=== PATIENT | male | born 1970 | race Caucasian/White ===

== ENCOUNTER → 2024-12-18 | Day surgery (SDC) | payer OTHER ==
[~2024-12-18] MED LIST: ACETAMINOPHEN 1000 MG/100 ML 0 ML IV ONE; ACETAMINOPHEN 1000 MG/100 ML 100 ML IV ONE; AMLODIPINE BESYL5 MG PO; BUPIVACAINE LIPOSOME/PF 266 MG/20 ML IJ ONE; CIALIS5 MG PO; DEXAMETHASONE SOD PHOS INJ 4 MG/ML SDV ONE; FENTANYL CITRATE/PF 100MCG/2 ML INJ ONE; LIDOCAINE HCL 2% LOCAL INJ 5 ML SDV VIAL INJ ONE; MIDAZOLAM HCL 2 MG/2 ML VIAL ONE; ONDANSETRON HCL INJ 2MG/ML 2ML 2 MG/ML VIAL ONE; PROPOFOL IV EMULSION 10 MG/ML 20 ML VIAL ONE; SUCCINYLCHOLINE CHLORIDE 20 MG/ML 10ML VIAL ONE
[2024-12-18] MEDS: LACTATED RINGER'S 1,000 ML ONE (11:16)
[2024-12-18] MEDS: HYDROCODONE/APAP 7.5MG-325MG 1 EA TAB ONE (16:00)
[2024-12-18 16:25] VITALS: BP 127/85; PULSE 62; RESP 17; O2SAT 96
== END | disposition home or self-care (01) ==
LOC: OR 10:39
PROVIDERS: ATTEND Orthopaedic Surgery Sports Medicine
DX: D17.9 Benign lipomatous neoplasm, unspecified (principal); M19.011 Primary osteoarthritis, right shoulder; M25.711 Osteophyte, right shoulder; S43.431A Superior glenoid labrum lesion of right shoulder, initial encounter; M75.121 Complete rotator cuff tear or rupture of right shoulder, not specified as traumatic; M75.21 Bicipital tendinitis, right shoulder; S46.811A Strain of other muscles, fascia and tendons at shoulder and upper arm level, right arm, initial encounter; M67.411 Ganglion, right shoulder; M65.821 Other synovitis and tenosynovitis, right upper arm; D17.20 Benign lipomatous neoplasm of skin and subcutaneous tissue of unspecified limb; I10 Essential (primary) hypertension; K21.9 Gastro-esophageal reflux disease without esophagitis; Z01.810 Encounter for preprocedural cardiovascular examination; Z79.899 Other long term (current) drug therapy; Z68.34 Body mass index [BMI] 34.0-34.9, adult
CPT/HCPCS: 21933; 88304; 93005; C1713; J0131; J0330; J0666; J0690; J1100; J2003; J2250; J2405; J2704; J3010; J7121